=== PATIENT | female | born 1940 | race Caucasian/White ===

== ENCOUNTER 2024-01-03 13:55 | Emergency (ER) | payer MEDICARE, OTHER, SELFPAY ==
[2024-01-03 14:09] VITALS: BP 106/55
[2024-01-03 16:42] LABS: % Basophils 0.5 % (0-2); % Eosinophils 8.1 % (0-6); % Immature Granulocytes 0.4 % (0-0.5); % Lymphocytes 20.6 % (20.5-51.1); % Monocytes 12.5 % (1.7-9.3); % Neutrophils 57.9 % (42.2-75.2); Absolute Eosinophils 0.7 10^3/uL (0-0.7); Absolute Lymphocytes 1.8 10^3/uL (1.2-3.4); Absolute Monocytes 1.1 10^3/uL (0.1-0.6); Absolute Neutrophils 4.9 10^3/uL (1.4-6.5); Hematocrit 36.9 % (37.0-47.0); Mean Corp Hgb Conc. 32.5 g/dL (33.0-37.0); Mean Corpuscular Hgb 30.3 pg (27.0-31.0); Mean Corpuscular Volume 93.2 fL (81.0-99.0); Mean Platelet Volume 11.7 fL (7.4-10.4); Nucleated Red Blood Cells % 0 %; Platelet Count 230 10^3/uL (130-400); Red Blood Cell Count 3.96 10^6/uL (4.20-5.40); Red Cell Dist. Width 13.9 % (11.5-14.5); White Blood Cell Count 8.5 10^3/uL (4.8-10.8)
[2024-01-03 17:00] LABS: Blood Urea Nitrogen 31 mg/dl (7-17); Calcium 9.4 mg/dl (8.4-10.2); Carbon Dioxide 22 mmol/L (22-30); Chloride 101 mmol/L (98-107); Glucose 79 mg/dl (70-99); Potassium 5.1 mmol/L (3.5-5.1); Sodium 136 mmol/L (135-145); eGFR 41.31
[2024-01-03 17:05] VITALS: BP 123/65
[2024-01-03 18:08] VITALS: BP 122/54
--- NOTE | 2024-01-03 18:45 | ED.GENMED ---
History of Present Illness
General
Chief Complaint: Crisis Evaluation
Source: patient
Exam Limitations: clinical condition
Time Seen by Provider: 01/03/24 14:53
Travel History
Have you had any contact with someone who has COVID-19?: No
Do you have any symptoms of coronavirus? Fever > 100 degrees, chills, cough, shortness of breath, sore throat, loss of taste or smell, muscle aches, or headache?: No
History of Present Illness
History of Present Illness:
83-year-old female sent in for aggressive behavior and apparently suicidal ideation although patient absolutely denies this. She has no specific complaints except to say she feels like she is being treated poorly there. Physically she complains of
some shortness of breath however is very vague in her physical complaint. She denies fever chills cough or chest pain.
Past History
Past History
ED Past Medical History: HTN, Hypercholesterolemia and NIDDM
ED Past Surgical History: Gynecological
Social History
Tobacco: Smoker
Personal:
Living: alone
Review of Systems
Review of Systems
All Other Systems: Not applicable
Constitutional: Denies fever
Cardiac: Reports no symptoms
ABD/GI: Reports no symptoms
Phy Exam
Physical Exam
Physical Exam:
GENERAL: Alert and oriented in no apparent distress. Elderly and frail
EYE: Orbits normal.
NECK: Supple
CARDIAC: Regular rate and rhythm without any obvious murmurs.
LUNGS: Clear breath sounds,normal
ABDOMEN: Soft, without focal tenderness or distention
NEUROLOGICAL: Alert and oriented , grossly non-focal
SKIN: Warm and dry, no rash or lesion, no discoloration, skin intact.
MUSCULOSKELETAL: No edema,no deformity.Good color
PSYCH: Mildly anxious
Course
Orders/Labs/Results
Orders:
Orders
01/03/24 14:54
Crisis Consult Urgent
Reason for Consult: Shae parentssuicidal lenin [id number]
01/03/24 14:59
Electrocardiogram (*1) Stat
Reason for Study: Other
Other Reason for Exam: chest pain
EKG- Treatment ONCE
CR Chest - 2 Views Urgent
Comment:
Reason For Exam: sob
01/03/24 16:35
Basic Metabolic Panel Urgent
Complete Blood Count/With Diff Urgent
01/03/24 16:58
Troponin I Urgent
Abnormal Lab Results
01/03/24
16:35
RBC 3.96 L 10^6/uL
(4.20-5.40)
Hct 36.9 L %
(37.0-47.0)
MCHC 32.5 L g/dL
(33.0-37.0)
MPV 11.7 H fL
(7.4-10.4)
Absolute Monos (auto) 1.1 H 10^3/uL
(0.1-0.6)
Monocytes % 12.5 H %
(1.7-9.3)
Eosinophils % 8.1 H %
(0-6)
BUN 31 H mg/dl
(7-17)
Creatinine 1.3 H mg/dL
(0.6-1.0)
01/03/24 16:35
01/03/24 16:35
Vital Signs
Initial and Last Documented VS:
Initial Vital Signs
Temp Pulse Resp BP Pulse Ox
97.7 F 63 18 106/55 98
01/03/24 14:09 01/03/24 14:09 01/03/24 14:09 01/03/24 14:09 01/03/24 14:09
Last Documented Vital Signs
Temp Pulse Resp BP Pulse Ox
97.7 F 78 16 122/54 95
01/03/24 14:09 01/03/24 18:33 01/03/24 18:33 01/03/24 18:08 01/03/24 18:33
*Radiology
Radiology exam reviewed: preliminary read by ED provider (neg)
*Pulse Oximetry
Patient hypoxic: no
*EKG
Interpreted by ED Provider?: Yes
Comparison EKG: no changes
Heart Rate: 63
Rate: normal
Rhythm: sinus
Kincaid: normal axis
Interval: normal interval
QRS Pattern: normal QRS
Ischemia: non-specific ST changes
*Critical Care Note
Total Time (30-74mins, 75-104mins- exclusive of procedures): Not Applicable
Update Note
Update Note:
Patient cleared by crisis. No indication for admission. Again she describes some shortness of breath but does not even reproduce this complaint. Clinically stable for discharge
ED Attending Note
-
Portions of this chart may have been created with voice recognition software.� Occasional wrong word or��sound alike� substitutions may have occurred due to the inherent limitations of voice recognition software.
Discharge Plan
Departure
Patient Disposition: Home (Routine Discharge)
Date of Disposition: 01/03/24
Time of Disposition: 19:15
Patient with high blood pressure during this ER visit?: Yes
Discharge Problem:
dyspnea
Instructions: Shortness of Breath, Adult ED, BLOOD PRESSURE
Prescriptions:
No Action
atorvastatin 20 MG tablet
20 mg PO HS
acetaminophen [Tylenol] 325 mg Tablet
650 mg PO Q4HPRN PRN (Reason: mild pain)
insulin glargine [Lantus U-100 Insulin] 100 unit/mL Solution
34 unit SC HS
polyethylene glycol 3350 [Miralax] 17 gram Powder In Packet
17 g PO DAILYPRN PRN (Reason: constipation)
cetirizine 10 mg Tablet
10 mg PO DAILY
tizanidine 4 mg Tablet
4 mg PO BID
diphenhydramine-zinc acetate 1-0.1 % Cream
1 applic TOPICAL Q8HPRN PRN (Reason: itchness)
ondansetron HCl 4 mg Tablet
4 mg PO Q8HPRN PRN (Reason: nausea)
dextromethorphan-guaifenesin 10-200 mg/5 mL Liquid
5 ml PO Q4HPRN PRN (Reason: cough)
levothyroxine [Synthroid] 75 mcg Tablet
75 mcg PO DAILY
magnesium hydroxide [Milk of Magnesia] 400 mg/5 mL Suspension
2,400 mg PO [id number] PRN (Reason: if no bm on 3rd day)
meclizine 25 mg Tablet
25 mg PO Q8HPRN PRN (Reason: dizziness)
bisacodyl [Dulcolax (bisacodyl)] 10 mg Suppository
10 mg AL DAILYPRN PRN (Reason: if no bm aftr mom)
divalproex [Depakote] 125 mg Tablet,Delayed Release (Dr/Ec)
125 mg PO Q12H
Fleet Enema 19-7 gram/118 mL Enema
118 ml AL DAILYPRN PRN (Reason: if no bm aftr dulcolax)
hydroxyzine HCl 25 mg Tablet
50 mg PO BID
furosemide [Lasix] 20 mg Tablet
20 mg PO DAILY
clotrimazole [Micotrin AC] 1 % Cream
1 applic TOPICAL TID
insulin lispro 100 unit/mL Insulin Pen
10 unit SC AC
Icy Hot (menthol) 5 % Adhesive Patch,Medicated
1 patch TOPICAL DAILY
duloxetine [Cymbalta] 30 mg Capsule,Delayed Release(Dr/Ec)
60 mg PO DAILY
capsaicin 0.1 % Cream
1 applic TOPICAL Q8HPRN PRN (Reason: back and legs)
pregabalin [Lyrica] 75 mg Capsule
75 mg PO HS
melatonin 10 mg Tablet
10 mg PO HS
Referrals:
UNKNOWN - PT NOT,INTERVIEWE [Family Provider] -
Activity Restrictions/Additional Instructions:
Follow-up with her physician
Encourage fluid intake.
Recheck with any concerns of aggressive behavior depression or suicidal ideation.
Interventions
Interventions:
*Risk Screen - Suicide Last Done: 01/03/24 14:09
*General Assessment Last Done: 01/03/24 14:09
*Neglect/Abuse Screening Last Done: 01/03/24 14:09
ED-Psychological Assessment Last Done: 01/03/24 16:53
Discharge Date and Time
Print Language: DIVEHI
[2024-01-03 19:00] VITALS: BP 111/54
[2024-01-03 20:00] VITALS: BP 115/57
== END 2024-01-03 21:06 | disposition home or self-care (01) ==
LOC: EMR 13:55
PROVIDERS: EMERGENCY PHYSICIAN Emergency Medicine
DX: R06.02 Shortness of breath (principal); I10 Essential (primary) hypertension; E78.00 Pure hypercholesterolemia, unspecified; E11.9 Type 2 diabetes mellitus without complications; F17.200 Nicotine dependence, unspecified, uncomplicated; Z88.0 Allergy status to penicillin
CPT/HCPCS: 99283; 71046; 80048; 85025; 93005